=== PATIENT | male | born 1990 | race Two or more races ===

== ENCOUNTER 2023-02-26 22:19 | Emergency (ER) | payer MEDICAID ==
[~2023-02-26] VITALS: Ht 188 cm; Wt 181.0 kg
[2023-02-27 00:53] VITALS: BP 145/89; PULSE 81; RESP 18; TEMP 98.5
[2023-02-27 02:12] LABS: BASOPHILS % (AUTO) 0.5 % (0.0-2.0); EOSINOPHILS % (AUTO) 1.2 % (1.0-6.0); HEMATOCRIT 39.4 % (41-53); LYMPHOCYTES # (AUTO) 2.1 K/uL (1.0-4.8); LYMPHOCYTES % (AUTO) 17.7 % (22.0-44.0); MEAN CORPUSCULAR HEMOGLOBIN 28.6 pg (26.0-34.0); MEAN CORPUSCULAR HGB CONC 32.9 G/dL (31.0-37.0); MEAN CORPUSCULAR VOLUME 87 fL (80-100); MONOCYTES # (AUTO) 1.2 K/uL (0.1-1.0); MONOCYTES % (AUTO) 10.1 % (2.0-9.0); NEUTROPHILS # (AUTO) 8.6 K/uL (1.8-7.7); NEUTROPHILS % (AUTO) 70.5 % (40.0-70.0); PLATELET COUNT (AUTO) 225 K/uL (150-450); RED BLOOD CELL COUNT(AUTO) 4.54 MIL/uL (4.50-5.90)
[2023-02-27 02:24] LABS: ANION GAP 14 mmol/L (8-16); CALCIUM, TOTAL 9.2 mg/dL (8.8-10.5); CARBON DIOXIDE 30 mmol/L (22-29); CHLORIDE 99 mmol/L (98-107); CREATININE 1.04 mg/dL (0.60-1.30); GLOMERULAR FILTR. RATE CALC > 60 mL/min (>60); GLUCOSE,RANDOM 92 mg/dL (70-110); POTASSIUM 3.8 mmol/L (3.5-5.1); SODIUM SERUM 143 mmol/L (136-145)
[2023-02-27 02:32] LABS: ALANINE AMINOTRANSFERASE 54 U/L (12-78); ALBUMIN 3.2 g/dL (3.4-5.0); ALKALINE PHOSPHATASE 105 U/L (46-116); ASPARTATE AMINOTRANSFERASE 22 U/L (15-37); BILIRUBIN,TOTAL 0.3 mg/dL (0.1-1.0); LIPASE 23 U/L (16-77); TOTAL PROTEIN, SERUM 7.8 g/dL (6.4-8.2)
[2023-02-27] MEDS ORDERED: ALBUTEROL SULFATE HFA 90 MCG/PUFF 8 GM INHALER IH ONE (02:45)
[2023-02-27] MEDS ORDERED: OLANZapine 5 MG TABLET PO ONE (03:00)
== END 2023-02-27 03:18 | disposition home or self-care (01) ==
LOC: EDBD → EMS 22:23
DX: R19.7 Diarrhea, unspecified (principal); F20.9 Schizophrenia, unspecified; F15.90 Other stimulant use, unspecified, uncomplicated
CPT/HCPCS: 80053; 83690; 85025; 94640; 99283; G0480; J3535

== ENCOUNTER 2023-03-01 01:01 | Inpatient (IN) | payer MEDICAID ==
[~2023-03-01] VITALS: Ht 170.2 cm; Wt 175.0 kg
[2023-03-01 02:17] LABS: COVID AG,FIA SOURCE NASAL SWAB
[2023-03-01 03:45] VITALS: PULSE 91; RESP 20; O2SAT 92
[2023-03-01 04:16] LABS: BASOPHILS % (AUTO) 0.2 % (0.0-2.0); EOSINOPHILS % (AUTO) 2.1 % (1.0-6.0); HEMATOCRIT 38.1 % (41-53); HEMOGLOBIN 12.6 g/dL (13.5-17.5); LYMPHOCYTES # (AUTO) 1.9 K/uL (1.0-4.8); LYMPHOCYTES % (AUTO) 18.5 % (22.0-44.0); MEAN CORPUSCULAR HGB CONC 33.1 G/dL (31.0-37.0); MEAN CORPUSCULAR VOLUME 88 fL (80-100); MONOCYTES # (AUTO) 0.9 K/uL (0.1-1.0); MONOCYTES % (AUTO) 9.4 % (2.0-9.0); NEUTROPHILS # (AUTO) 7.1 K/uL (1.8-7.7); NEUTROPHILS % (AUTO) 69.8 % (40.0-70.0); PLATELET COUNT (AUTO) 209 K/uL (150-450); RED BLOOD CELL COUNT(AUTO) 4.35 MIL/uL (4.50-5.90); RED CELL DISTRIBUTION WIDTH 14.2 % (11.5-14.5)
[2023-03-01 04:21] VITALS: PULSE 91; RESP 20; O2SAT 90
[2023-03-01 04:25] LABS: ANION GAP 14 mmol/L (8-16); CARBON DIOXIDE 29 mmol/L (22-29); CHLORIDE 102 mmol/L (98-107); CREATININE 0.99 mg/dL (0.60-1.30); GLOMERULAR FILTR. RATE CALC > 60 mL/min (>60); GLUCOSE,RANDOM 105 mg/dL (70-110); SODIUM SERUM 145 mmol/L (136-145)
[2023-03-01 04:31] LABS: ALANINE AMINOTRANSFERASE 40 U/L (12-78); ALBUMIN 2.7 g/dL (3.4-5.0); ALKALINE PHOSPHATASE 96 U/L (46-116); ASPARTATE AMINOTRANSFERASE 17 U/L (15-37); BILIRUBIN,TOTAL 0.3 mg/dL (0.1-1.0); TOTAL PROTEIN, SERUM 6.8 g/dL (6.4-8.2)
[2023-03-01 07:45] LABS: AMPHET/METH SCREEN,URINE NEGATIVE (NEGATIVE); BARBITURATE SCREEN, URINE NEGATIVE (NEGATIVE); BENZODIAZEPINES SCREEN,URINE NEGATIVE (NEGATIVE); CANNABINOID SCREEN,URINE NEGATIVE (NEGATIVE); COCAINE SCREEN,URINE NEGATIVE (NEGATIVE); METHADONE SCREEN, URINE NEGATIVE (NEGATIVE); OPIATE SCREEN,URINE NEGATIVE (NEGATIVE); PHENCYCLIDINE SCREEN,URINE NEGATIVE (NEGATIVE)
[2023-03-01] MEDS ORDERED: QUEtiapine FUMARATE 100 MG TABLET PO PRN (09:00)
[2023-03-01] MEDS: LORazepam 2 MG TABLET PO PRN (16:05)
[2023-03-01 17:46] LABS: APPEARANCE,URINE TURBID (CLEAR); BILIRUBIN,URINE NEGATIVE (NEGATIVE); GLUCOSE, URINE (UA) NEGATIVE (NEGATIVE); KETONES,URINE NEGATIVE (NEGATIVE); LEUKOCYTE ESTERASE ,URINE NEGATIVE (NEGATIVE); NITRATE,URINE NEGATIVE (NEGATIVE); OCCULT BLOOD,URINE NEGATIVE (NEGATIVE); PH,URINE 5.5 (5.0-8.0); PROTEIN,URINE TRACE mg/dL (NEGATIVE); SPECIFIC GRAVITIY, URINE 1.021 (1.003-1.030); UROBILINOGEN,URINE <=1.0 mg/dL (<=1.0)
[2023-03-02] MEDS: LORazepam 2 MG TABLET PO PRN ×3 (10:49→20:59)
[2023-03-02] MEDS ORDERED: HALOPERIDOL LACTATE 5 MG/ML VIAL IM ONE (15:00)
[2023-03-02] MEDS ORDERED: LORazepam 2 MG/ML VIAL IM ONE (15:00)
[2023-03-02] MEDS ORDERED: DiphenhydrAMINE HCL 50 MG/ML VIAL IM ONE (15:00)
[2023-03-02] MEDS ORDERED: LOPERAMIDE HCL 2 MG CAPSULE PO ONE (15:00)
[2023-03-02 17:01] VITALS: BP 128/78; PULSE 89; RESP 19; TEMP 97.8
[2023-03-02 20:23] VITALS: BP 130/93; PULSE 61; RESP 19; TEMP 98
[2023-03-02] MEDS: ZOLPIDEM TARTRATE 10 MG TABLET PO PRN (20:59)
[2023-03-03] MEDS ORDERED: LOPERAMIDE HCL 2 MG CAPSULE PO PRN ×2 (09:45→15:45)
[2023-03-03] MEDS ORDERED: ALBUTEROL SULFATE HFA 90 MCG/PUFF 8 GM INHALER IH PRN (15:45)
[2023-03-03] MEDS ORDERED: DOCUSATE SODIUM 100 MG CAPSULE PO PRN (15:45)
[2023-03-03] MEDS ORDERED: ONDANSETRON HCL 4 MG TABLET PO PRN (15:45)
[2023-03-03] MEDS ORDERED: MAGNESIUM HYDROXIDE SUSPENSION 30 ML UDCUP PO PRN (15:45)
[2023-03-03] MEDS ORDERED: IBUPROFEN 400 MG TABLET PO PRN (15:45)
[2023-03-03] MEDS ORDERED: MAG HYDROX/AL HYDROX/SIMETH ES 30 ML SUSPENSION UDCUP PO PRN (15:45)
[2023-03-03] MEDS ORDERED: ACETAMINOPHEN 325 MG TABLET PO PRN (15:45)
[2023-03-03] MEDS ORDERED: CloNIDine HCL 0.1 MG TABLET PO PRN (15:45)
[2023-03-03] MEDS ORDERED: NICOTINE 14 MG/24 HOUR PATCH TD PRN (15:45)
[2023-03-03] MEDS ORDERED: PETROLATUM,WHITE 28 GM JELLY TP PRN (15:45)
[2023-03-03] MEDS: LORazepam 2 MG TABLET PO PRN (17:03)
[2023-03-03] MEDS ORDERED: MIRTAZAPINE 15 MG TABLET PO SCH (21:00)
[2023-03-03] MEDS: ZOLPIDEM TARTRATE 10 MG TABLET PO PRN (21:23)
[2023-03-04] MEDS ORDERED: MIRT-89 PO (08:58)
[2023-03-04 09:38] VITALS: RESP 18; TEMP 97.5
== END 2023-03-04 10:00 | disposition home or self-care (01) | DRG 750 ==
LOC: EMS 01:01 → 3EI 03-02 15:08
PROVIDERS: ADMIT Psychiatry & Neurology Psychiatry; ATTEND Psychiatry & Neurology Psychiatry
DX: F25.1 Schizoaffective disorder, depressive type (principal); S81.809A Unspecified open wound, unspecified lower leg, initial encounter; R45.851 Suicidal ideations; Z68.44 Body mass index [BMI] 60.0-69.9, adult; E66.01 Morbid (severe) obesity due to excess calories; G47.33 Obstructive sleep apnea (adult) (pediatric); Z20.822 Contact with and (suspected) exposure to COVID-19; I10 Essential (primary) hypertension; D64.9 Anemia, unspecified; X58.XXXA Exposure to other specified factors, initial encounter; Y93.89 Activity, other specified; Y92.89 Other specified places as the place of occurrence of the external cause; Y99.8 Other external cause status; Z87.891 Personal history of nicotine dependence
CPT/HCPCS: 80053; 80307; 81003; 85025; 94660; 99285; G0480; J1200; J1630; J2060